=== PATIENT | male | born 1995 | race African-American/Black ===

== ENCOUNTER 2019-06-10 02:42 | Emergency (ER) | payer BC, OTHER ==
[2019-06-10] MEDS ORDERED: Ondansetron 4 MG/2 ML SDV ONE (02:51)
--- NOTE | 2019-06-10 02:54 | EDM.PDOC ---
ED HPI GENERAL MEDICAL PROBLEM - General Stated Complaint: POSSIBLE ALCOHOL POISON Time Seen by Provider: 06/10/19 02:51 Source of Information: Reports: Other - History of Present Illness INITIAL COMMENTS - FREE TEXT/NARRATIVE: The patient is a 23-year-old male who has been brought to the ER by his friends because he drank an entire bottle of Jeny liquor and now he cannot walk and he is nauseated and throwing up. He did not fall, there is definitely not any trauma. No recent fevers. The patient cannot provide any history because he is heavily inebriated. - Related Data Allergies Allergy/AdvReac Type Severity Reaction Status Date / Time No Known Allergies Allergy Unverified 06/10/19 02:53 Home Meds: Home Meds . [No Known Home Meds] 05/23/16 [History] Past Medical History HEENT History: Reports: None Cardiovascular History: Reports: None Respiratory History: Reports: None Gastrointestinal History: Reports: None Genitourinary History: Reports: None Musculoskeletal History: Reports: None Neurological History: Reports: None Psychiatric History: Reports: None Endocrine/Metabolic History: Reports: None Hematologic History: Reports: None Immunologic History: Reports: None Oncologic (Cancer) History: Reports: None - Infectious Disease History Infectious Disease History: Reports: None - Past Surgical History Head Surgeries/Procedures: Reports: None Social & Family History - Family History Family Medical History: Noncontributory - Caffeine Use Caffeine Use: Reports: Coffee, Energy Drinks Caffeine Use Comment: 1/day ED ROS GENERAL - Review of Systems Review Of Systems: Unable To Obtain Reason Not Obtained: Secondary to inebriation ED EXAM, GENERAL - Physical Exam Exam: See Below Free Text/Narrative:: Constitutional: Overall healthy-appearing young male who is heavily inebriated and retching and is otherwise minimally responsive, no respiratory distress, smells of alcohol HEENT: Normocephalic, Atraumatic, PERRL, EOMI, managing his own secretions Neck: Normal range of motion, No stridor, trachea midline Respiratory: No respiratory distress, No tachypnea, lungs are clear Cardiovascular: Regular rate and rhythm Gastrointestinal: Abdomen is soft and nondistended, no tenderness Genital / Urinary: Deferred Musculoskeletal: All four extremities present and atraumatic Back: FROM Integument: Warm, Dry, Color is ethnicity appropriate, No rash. Neuro: Heavily inebriated, GCS 2, 2, 9 Psych: Unable to assess Course - Vital Signs Text/Narrative:: The patient had been cleaned up as he vomited on himself a few times. He had been given Zofran 8 mg IM and allowed to sleep. No concerning occurred ( hypotension, aspiration, etc. ) and after several hours the patient is now awake and able to stand up and get dressed. His girlfriend has been contacted and she is coming to pick him up. Last Recorded V/S: Last Vital Signs Temp 35.9 C L 06/10/19 02:50 Pulse 79 06/10/19 05:00 Resp 14 06/10/19 05:00 BP 129/89 06/10/19 05:00 Pulse Ox 98 06/10/19 05:00 - Orders/Labs/Meds Meds: Medications Discontinued Medications Generic Name Dose Route Start Last Admin Trade Name Florencio PRN Reason Stop Dose Admin Ondansetron HCl Confirm 06/10/19 02:51 06/10/19 03:53 Zofran Administered 06/10/19 02:52 Not Given Dose 8 mg .ROUTE .STK-MED ONE Ondansetron HCl 8 mg 06/10/19 03:33 06/10/19 03:52 Zofran IM 06/10/19 03:34 8 mg ONETIME ONE Administration Departure - Departure Time of Disposition: 06:34 Disposition: Home, Self-Care 01 Condition: Good Clinical Impression: Alcohol intoxication - Discharge Information *PRESCRIPTION DRUG MONITORING PROGRAM REVIEWED*: Not Applicable *COPY OF PRESCRIPTION DRUG MONITORING REPORT IN PATIENT TANISHA: Not Applicable Instructions: Alcohol Intoxication Sepsis Event Note - Focused Exam Vital Signs: Vital Signs Temp Pulse Resp BP Pulse Ox 06/10/19 05:00 79 14 129/89 98 06/10/19 03:53 76 16 151/76 H 100 06/10/19 02:50 35.9 C L 87 20 208/112 H 97 Date Exam was Performed: 06/10/19 Time Exam was Performed: 06:32
[2019-06-10] MEDS ORDERED: Ondansetron 4 MG/2 ML SDV IM ONE (03:33)
[2019-06-10 05:16] VITALS: BP 129/89; PULSE 79
== END 2019-06-10 07:07 | disposition home or self-care (01) ==
LOC: MW.ED 02:42
DX: F10.129 Alcohol abuse with intoxication, unspecified (principal)
CPT/HCPCS: 96372; 99283; J2405; 99282